=== PATIENT | female | born 1950 | race Caucasian/White ===

== ENCOUNTER 2020-04-23 10:36 | Emergency (ER) | payer OTHER, MEDICARE, SELFPAY ==
--- NOTE | ~2020-04-23 | XR_ITS ---
EXAMINATION: XR lumbar spine 2-3V, XR sacrum coccyx min 2V EXAM DATE: 04/23/2020 11:21 INDICATION: Initial encounter following injury, with pain of the low back, sacrum. TECHNIQUE: Lumber spine frontal, lateral, lateral L5-S1 projections for interpretation. Sacral front al, inlet, lateral projections. Comparison is made to prior examination from 01/21/2010. FINDINGS: Again there is moderate to severe loss of the L5-S1 disc height. There is been interval dev elopment of 3 mm anterolisthesis L4 on L5, moderate loss of disc height at this level. Otherwise mild lumbar disc disease. There is mild to moderate lumbar facet arthropathy. There is mild to moderate a nterior wedging of T11 without findings to suggest this is acute. This level was not imaged on the pr ior study. Otherwise the vertebral body heights are maintained. There are no acute fractures identifi ed. Sacrum, sacroiliac joints, sacral arcuate lines are intact. Mild dextroscoliosis. Paraspinal soft tissue is unremarkable. Left hip gamma nail with some distraction of the superior aspect greater trochanter; please correlate with the left hip report same date. IMPRESSION: 1. T11 mild to moderate anterior wedging more likely chronic than acute. 2. Mild progression in lumbar spondylosis. Reviewed, dictated and finalized at location [facility]. IMPRESSION: 1. T11 mild to moderate anterior wedging more likely chronic than acute. 2. Mild progression in lumbar spondylosis.
--- NOTE | ~2020-04-23 | CT_ITS ---
EXAMINATION: CT hip LT wo con DATE: 04/23/2020 12:03 INDICATION: Left hip pain. TECHNIQUE: Computed tomography (CT) of the left hip was performed without intravenous contrast. Autom ated exposure control and iterative reconstruction technique were employed. The dose-length product w as 152.29 mGy-cm. COMPARISON: Left hip radiographs 04/23/2020, 01/22/2020 FINDINGS: There is old healed fracture of proximal left femur. Internal fixation seen with antegrade intramedullary gerry, femoral head/neck screw, distal interlocking screw. There are lucencies around th e intramedullary gerry and lateral aspect of the femoral head/neck screw. There is a comminuted fractur e of greater trochanter. Many of the fracture fragments are well-corticated. There is mild left hip o steoarthritis. IMPRESSION: 1. Comminuted fracture of greater trochanter of proximal left femur, likely not acute. 2. Instrumentation of proximal left femur with lucencies around the instrumentation suspicious for lo osening or infection. Correlate with postoperative radiographs. Reviewed, dictated and finalized at location [facility]. IMPRESSION: 1. Comminuted fracture of greater trochanter of proximal left femur, likely not acute. 2. Instrumentation of proximal left femur with lucencies around the instrumenta tion suspicious for loosening or infection. Correlate with postoperative radiog raphs.
--- NOTE | ~2020-04-23 | XR_ITS ---
EXAMINATION: XR hip LT 2V w AP pelvis DATE: 04/23/2020 11:21 INDICATION: Left hip pain post fall TECHNIQUE: Anteroposterior view of the pelvis and anteroposterior and frog-leg lateral views of the l eft hip were obtained. COMPARISON: 01/21/2010 FINDINGS: Internal fixation at the proximal left femur with antegrade intramedullary gerry, distal interlocking s crew and femoral neck dynamic compression screw fixation. Recent-appearing avulsion fracture of the c ephalad aspect of the left greater trochanter with approximately 1 cm proximal distraction. Bilateral hip joint spaces appear relatively preserved. Severe lower lumbar spondylosis. Mild bilateral sacroi liac osteoarthritis. IMPRESSION: 1. Recent appearing avulsion fracture at the cephalad aspect of the left greater trochanter with appr oximately 1 cm proximal distraction. Reviewed, dictated and finalized at location [facility]. IMPRESSION: 1. Recent appearing avulsion fracture at the cephalad aspect of the left greate r trochanter with approximately 1 cm proximal distraction.
[2020-04-23 10:50] VITALS: BP 124/58; PULSE 117; RESP 18; TEMP 36.3; O2SAT 97
--- NOTE | 2020-04-23 13:33 | ED.GENADULT ---
HPI - General Adult General Chief complaint: Extremity Injury, Lower Stated complaint: fall, leg pain Time Seen by Provider: 04/23/20 10:46 Source: patient and family Mode of arrival: ambulatory Limitations: no limitations History of Present Illness HPI narrative: Patient presents with chief complaint of pain to her tailbone and her left hip that began after her fall today. Patient states that she has multiple sclerosis and falls often when she has flares. Patient states she has been in a flare for the past 3 days. Patient reports that she had a left hip replaced 02/2017 at [place] but would not like to disclose her surgeon as she does not want to be seen by him again. Patient states that she had difficulty getting which is typical when she is weak during her flares. She states she got her daughter came and helped her and she has just been able to walk on the extremity although there is any discomfort. Patient denies hitting her head or any loss of consciousness. She denies change in vision or hearing, syncope, chest pain, shortness of breath, abdominal pain, nausea, vomiting or any other symptoms. Related Data Allergies Allergy/AdvReac Type Severity Reaction Status Date / Time acetaminophen [From Vicodin] AdvReac Hives Verified 04/23/20 14:47 hydrocodone [From Vicodin] AdvReac Hives Verified 04/23/20 14:47 oxycodone [From OxyContin] AdvReac Hives Verified 04/23/20 14:45 Review of Systems Review of Systems: Narrative: CONSTITUTIONAL: Denies fever, chills, or sweats. EYES: Denies visual changes, redness, or discharge. ENT: Denies rhinorrhea, congestion, sore throat, or otalgia. CARDIOVASCULAR: Denies chest pain, palpitations, or edema. RESPIRATORY: Denies cough or dyspnea. GASTROINTESTINAL: Denies abdominal pain, nausea, vomiting, or diarrhea. GENITOURINARY: Denies dysuria or hematuria. SKIN: Denies rash or itching. MUSCULOSKELETAL: Reports pain to her tailbone and left hip denies back pain or myalgia. NEUROLOGIC: Denies headache, numbness, dizziness, or weakness. PSYCHIATRIC: Denies anxiety or depression. Exam Narrative: Exam Narrative: GENERAL: Well-appearing, well-nourished, and in no acute distress. HEAD: Normocephalic, atraumatic. EYES: PERRLA and EOMI. ENT: Nares clear, no rhinorrhea or epistaxis. Mucous membranes moist. Oropharynx without tonsillar hypertrophy exudate or other lesions. Bilateral TMs pearly maldonado nonbulging. No hemotympanum. NECK: Supple. No adenopathy or masses. No tenderness with palpation. CHEST: Clear to auscultation. No respiratory distress. No wheezes rales or rhonchi HEART: Regular rate and rhythm. No murmur heard. Normal peripheral pulses. BACK: Tender to palpation over the sacrum with very superficial abrasion. No other areas of tenderness or pain. ABDOMEN: Soft, nontender, nondistended, normal active bowel sounds. No bruises noted. EXTREMITIES: Patient is able to flex and lift left leg. There is no signs of pelvis pain or instability. There is tenderness to palpation over the left greater trochanter. There is no erythema or ecchymosis over the joint area increased warmth or signs of infection. Normal range of motion. No edema. SKIN: Very superficial abrasion over tailbone. Nonbleeding. Warm, dry, no rash. NEURO: No focal deficits. Alert and oriented x3. PSYCH: Normal mood and affect. Course Vital Signs Vital signs: Vital Signs Temperature 97.3 F L 04/23/20 10:50 Pulse Rate 117 H 04/23/20 10:50 Respiratory Rate 18 04/23/20 10:50 Blood Pressure 124/58 L 04/23/20 10:50 Pulse Oximetry 97 04/23/20 10:50 Temperature 97.3 F L 04/23/20 10:50 Pulse Rate 96 04/23/20 13:47 Respiratory Rate 18 04/23/20 13:47 Blood Pressure 141/85 H 04/23/20 13:47 Pulse Oximetry 99 04/23/20 13:47 Medical Decision Making MDM Narrative Medical decision making narrative: Patient has been offered pain medication emergency department. She has declined. She is only agreeable to Tyl
[2020-04-23 13:47] VITALS: BP 141/85; PULSE 96; RESP 18; O2SAT 99
[2020-04-23] MEDS: ACETAMINOPHEN 500 MG TABLET 1000 MG PO (15:00)
== END 2020-04-23 15:04 | disposition home or self-care (01) ==
PROVIDERS: Emergency Provider Emergency Medicine; PCP Family Medicine
DX: S73.102A Unspecified sprain of left hip, initial encounter (principal); S30.810A Abrasion of lower back and pelvis, initial encounter; G35 Multiple sclerosis; Z96.642 Presence of left artificial hip joint; M47.816 Spondylosis without myelopathy or radiculopathy, lumbar region; R93.7 Abnormal findings on diagnostic imaging of other parts of musculoskeletal system; W19.XXXA Unspecified fall, initial encounter
CPT/HCPCS: 72100; 72220; 73502; 73700; 99284; A9270

== ENCOUNTER 2021-07-13 11:26 | Emergency (ER) | payer MEDICARE, OTHER, SELFPAY ==
--- NOTE | ~2021-07-13 | XR_ITS ---
EXAMINATION: XR hip LT min 3V w AP pelvis DATE: 07/13/2021 13:56 INDICATION: Unable to bear weight on the left. TECHNIQUE: An anteroposterior view of pelvis and 3 views of left hip were obtained. COMPARISON: Pelvis and left hip radiographs 04/23/2020, CT 04/23/2020 FINDINGS: Bone alignment is normal. There is internal fixation of proximal left femur with antegrade intramedullary gerry, distal interlocking screw, and femoral head/neck screw. There is lucency around t he intramedullary gerry. There is an old fracture deformity of greater trochanter of proximal left femu r. There is mild osteoarthritis of the hips. There is severe lumbar spondylosis. IMPRESSION: 1. Instrumentation of proximal left femur with chronic lucencies around the intramedullary gerry, consi stent with loosening versus infection. 2. Mild osteoarthritis of the hips. Reviewed, dictated and finalized at location A. IMPRESSION: 1. Instrumentation of proximal left femur with chronic lucencies around the int ramedullary gerry, consistent with loosening versus infection. 2. Mild osteoarthritis of the hips.
[2021-07-13 11:56] VITALS: BP 175/71; PULSE 76; RESP 18; TEMP 36.1; O2SAT 100
--- NOTE | 2021-07-13 15:00 | ED.GENADULT ---
HPI - General Adult General Chief complaint: Extremity Injury, Lower Stated complaint: L hip pain Time Seen by Provider: 07/13/21 13:27 History of Present Illness HPI narrative: 70-year-old female presented to the emergency department for evaluation of worsening left hip pain. Patient states she has had intermittent hip pain but feels it has been worsening over the last few days. Patient denies any specific falls or injuries. Patient did have the hip initially replaced back in 2017. Related Data Home Medications Medication Instructions Recorded Confirmed atorvastatin 10 mg tablet tablet 07/13/21 07/13/21 baclofen 20 mg tablet tablet 07/13/21 cyclobenzaprine 10 mg tablet tablet 07/13/21 escitalopram oxalate 10 mg tablet tablet 07/13/21 gabapentin 300 mg capsule cap 07/13/21 levothyroxine 150 mcg tablet tablet 07/13/21 (Synthroid) lisinopril 20 mg tablet tablet 07/13/21 metoprolol tartrate 25 mg tablet tablet 07/13/21 teriflunomide 14 mg tablet tablet 07/13/21 (Aubagio) Allergies Allergy/AdvReac Type Severity Reaction Status Date / Time hydrocodone [From Vicodin] AdvReac Hives Verified 04/23/20 14:47 oxycodone [From OxyContin] AdvReac Hives Verified 04/23/20 14:45 Review of Systems Review of Systems: CONSTITUTIONAL: Denies fever, chills, or sweats. EYES: Denies visual changes, redness, or discharge. ENT: Denies rhinorrhea, congestion, sore throat, or otalgia. CARDIOVASCULAR: Denies chest pain, palpitations, or edema. RESPIRATORY: Denies cough or dyspnea. GASTROINTESTINAL: Denies abdominal pain, nausea, vomiting, or diarrhea. GENITOURINARY: Denies dysuria or hematuria. SKIN: Denies rash or itching. MUSCULOSKELETAL: See HPI NEUROLOGIC: Denies headache, numbness, or weakness. Exam Narrative: APPEARANCE: Well appearing, no pain, no distress, well-nourished. HEAD: normocephalic, atraumatic. EYES: PERRLA/EOMI, conjunctivae clear. NOSE: Normal no drainage NECK: Supple. No adenopathy, no masses. RESPIRATORY: Airway patent, respirations nonlabored. Clear to auscultation bilaterally, no rales, rhonchi, wheezing. CARDIOVASCULAR: Regular rate and rhythm without murmurs rubs or gallops. ABDOMINAL: Soft, nontender, nondistended, normal bowel sounds MUSCULOSKELETAL: Moves all extremities. No pain with range of motion of the hip but does have pain with weightbearing. NEURO: Alert. Cranial nerves II through XII intact. Grossly intact SKIN: Warm, dry. Normal Color Course Course Emergency Course: X-ray shows chronic changes consistent with loosening of the left hip. Patient was encouraged to have close follow-up with orthopedics. Patient was advised to have limited weightbearing on the left hip. All question concerns were addressed. Patient and daughter were comfortable with the plan for discharge and close follow-up. Patient prefers to have follow-up with [facility]. This number was provided for her for outpatient follow-up. Vital Signs Vital signs: Vital Signs Temperature 97 F L 07/13/21 11:56 Pulse Rate 76 07/13/21 11:56 Respiratory Rate 18 07/13/21 11:56 Blood Pressure 175/71 H 07/13/21 11:56 Pulse Oximetry 100 07/13/21 11:56 Temperature 97 F L 07/13/21 11:56 Pulse Rate 76 07/13/21 11:56 Respiratory Rate 18 07/13/21 11:56 Blood Pressure 175/71 H 07/13/21 11:56 Pulse Oximetry 100 07/13/21 11:56 Medical Decision Making Vital Signs Vital Signs: Vital Signs Temperature 97 F L 07/13/21 11:56 Pulse Rate 76 07/13/21 11:56 Respiratory Rate 18 07/13/21 11:56 Blood Pressure 175/71 H 07/13/21 11:56 Pulse Oximetry 100 07/13/21 11:56 Temperature 97 F L 07/13/21 11:56 Pulse Rate 76 07/13/21 11:56 Respiratory Rate 18 07/13/21 11:56 Blood Pressure 175/71 H 07/13/21 11:56 Pulse Oximetry 100 07/13/21 11:56 Discharge Plan Discharge Clinical Impression: Hip pain, left Patient Disposition: Home, Self-Care Condition: St
== END 2021-07-13 15:35 | disposition home or self-care (01) ==
PROVIDERS: Emergency Provider Emergency Medicine; PCP Family Medicine
DX: M25.552 Pain in left hip (principal); M16.0 Bilateral primary osteoarthritis of hip
CPT/HCPCS: 73502; 99283

== ENCOUNTER 2021-12-23 16:14 | Emergency (ER) | payer MEDICARE, SELFPAY ==
--- NOTE | ~2021-12-23 | CT_ITS ---
EXAMINATION: CT facial bones wo con DATE: 12/23/2021 17:42 INDICATION: Fall. Head and facial injury TECHNIQUE: Computed tomography (CT) of the facial bones and maxillofacial region was performed withou t intravenous contrast. Automated exposure control and iterative reconstruction technique were employ ed. Exam dose: 295.52 mGy-cm total exam DLP. COMPARISON: None. FINDINGS: Minimally displaced left nasal plate fracture of uncertain age. There is is very possibly r ecent as there is some asymmetric overlying left nasal soft tissue swelling. Frontozygomatic sutures, orbital rims and weiner, maxillary bones, zygomatic arches are intact. No flu id levels of the paranasal sinuses or orbital emphysema. Normal alignment at the temporomandibular joints. Degenerative change at the temporal mandibular join ts. No mandible fracture. IMPRESSION: Minimally displaced left nasal plate fracture Reviewed, dictated and finalized at [facility]. Reviewed, dictated and finalized at location A. RAL HOME ASSOCIATE
--- NOTE | ~2021-12-23 | CT_ITS ---
EXAMINATION: CT brain wo con DATE: 12/23/2021 17:38 INDICATION: Fall. TECHNIQUE: Computed tomography (CT) of the head was performed without intravenous contrast. The mA wa s adjusted according to patient size. Iterative reconstruction technique was employed. Exam dose: 60 5.33 mGy-cm total exam DLP. COMPARISON: None FINDINGS: Prominent vertebral artery and particularly prominent bilateral carotid siphon internal car otid artery calcifications are noted. There is nonspecific diminished attenuation cerebral white elayne er, likely due to chronic small vessel ischemic changes. Bilateral basal ganglia chronic lacunar infa rcts, prominent on the left. No intracranial mass lesion or hemorrhage, midline shift or mass effect effect. There is moderately p rominent central and cortical cerebral and cerebellar atrophy. No subdural or epidural hematoma. No fracture or bone destruction of the cranial vault is detected. Mastoid air cells and paranasal sin uses are unremarkable. IMPRESSION: Cerebral atherosclerosis and chronic small vessel ischemic changes of the cerebral white matter. Bilateral chronic lacunar infarcts No skull fracture or acute intracranial finding Reviewed, dictated and finalized at [facility]. Reviewed, dictated and finalized at location [facility]. GE WORKER
[2021-12-23 16:16] VITALS: BP 200/71; PULSE 67; RESP 18; TEMP 36.3; O2SAT 100
[2021-12-23 19:50] VITALS: BP 192/72; PULSE 63; RESP 18; O2SAT 98
--- NOTE | 2021-12-23 20:08 | ED.FALL ---
HPI - Fall General Chief Complaint: Fall Stated Complaint: fall Time Seen by Provider: 12/23/21 20:03 History of Present Illness HPI Narrative: Pt was walking upstairs to go to BR and tripped and fell and struck face on bathtub. Pt denies LOC. Pt has some pain to her nose but no nosebleed. Pt denies numbness or weakness. Pt has MS but nothing new with that. Pt denies WALLS. Related Data Home Medications Medication Instructions Recorded Confirmed atorvastatin 10 mg tablet tablet 07/13/21 07/13/21 baclofen 20 mg tablet tablet 07/13/21 cyclobenzaprine 10 mg tablet tablet 07/13/21 escitalopram oxalate 10 mg tablet tablet 07/13/21 gabapentin 300 mg capsule cap 07/13/21 levothyroxine 150 mcg tablet tablet 07/13/21 (Synthroid) lisinopril 20 mg tablet tablet 07/13/21 metoprolol tartrate 25 mg tablet tablet 07/13/21 teriflunomide 14 mg tablet tablet 07/13/21 (Aubagio) Allergies Allergy/AdvReac Type Severity Reaction Status Date / Time hydrocodone [From Vicodin] AdvReac Hives Verified 04/23/20 14:47 oxycodone [From OxyContin] AdvReac Hives Verified 04/23/20 14:45 Review of Systems Review of Systems: All systems reviewed & are unremarkable except as noted in HPI and below Exam Const: General: healthy appearing Nutritional Appearance: well nourished Orientation/consciousness: patient oriented x3 Limitations: no limitations HENMT: Head: normal to inspection Face/Nose/Sinus: Normal external nose present (abrasionand swelling to bridge of nose no septal hematoma) Mouth: Yes Normal oral and palatal mucosa present Eyes: Conjunctivae: conjunctivae normal Pupils: Equal, round and reactive pupils present EOM: EOMs intact bilaterally Direct Ophthalmoscopy: no photophobia Neck: Neck: normal visual inspection Chest: Chest palpation & inspection: normal inspection of the chest Resp: Effort & Inspection: normal respiratory effort Auscultation: clear to auscultation bilaterally Cardio: Rate: regular rate Rhythm: regular rhythm GI: Auscultation: normal bowel sounds Skin: General skin exam: normal color Rashes: no rashes Neuro: General: patient oriented x3, moves all extremities, no meningeal signs, no focal motor deficits and CN's II-XI intact bilaterally Cranial nerves: Yes Nystagmus not present Speech: normal speech Extrem: General: normal to inspection and no clubbing, cyanosis or edema Psych: Mental Status: mental status grossly normal Affect: normal affect Attitude: cooperative Course Vital Signs Vital signs: Vital Signs Temperature 97.3 F L 12/23/21 16:16 Pulse Rate 67 12/23/21 16:16 Respiratory Rate 18 12/23/21 16:16 Blood Pressure 200/71 H 12/23/21 16:16 Pulse Oximetry 100 12/23/21 16:16 Oxygen Delivery Room Air 12/23/21 16:16 Temperature 97.3 F L 12/23/21 16:16 Pulse Rate 63 12/23/21 19:50 Respiratory Rate 18 12/23/21 19:50 Blood Pressure 192/72 H 12/23/21 19:50 Pulse Oximetry 98 12/23/21 19:50 Oxygen Delivery Room Air 12/23/21 16:16 Discharge Plan Discharge Clinical Impression: Nasal bone fracture Patient Disposition: Home, Self-Care Condition: Stable Instructions: Antibiotic Form, Nasal Fracture (ED), Head Injury (ED) Prescriptions: No Action cyclobenzaprine 10 mg tablet atorvastatin 10 mg tablet lisinopril 20 mg tablet baclofen 20 mg tablet levothyroxine [Synthroid] 150 mcg tablet gabapentin 300 mg capsule escitalopram oxalate 10 mg tablet metoprolol tartrate 25 mg tablet Aubagio 14 mg tablet tramadol 50 mg tablet 50 mg PO Q6H PRN (Reason: pain) Qty: 14 0RF Follow-up/Referrals: Lindsey,Obed Oakes DO [Primary Care Provider] -
[2021-12-23 21:05] VITALS: BP 188/72; PULSE 76; RESP 18; O2SAT 99
== END 2021-12-23 21:06 | disposition home or self-care (01) ==
PROVIDERS: Emergency Provider Emergency Medicine; PCP Family Medicine
DX: S02.2XXA Fracture of nasal bones, initial encounter for closed fracture (principal); W01.198A Fall on same level from slipping, tripping and stumbling with subsequent striking against other object, initial encounter
CPT/HCPCS: 70450; 70486; 99284

== ENCOUNTER → 2022-08-23 15:30 | Outpatient (CLI) | payer MEDICARE, SELFPAY ==
--- NOTE | ~2022-08-23 | MR_ITS ---
MRI of the lumbar spine Clinical History: Spondylosis Technique: Axial T2-weighted images, and sagittal T1-weighted, T2-weighted, and T2 fat-sat images wer e acquired. Findings: No fracture identified in the lumbar spine. Mild chronic compression deformity of T11 noted . There is 6 mm anterolisthesis of L4 over L5. There are reactive marrow signal changes about the L4- L5 disc space due to underlying degenerative disc disease. At L1-L2, there is no disc bulge or herniation. There is mild facet arthropathy. No central canal susi nosis. There is probable mild left neural foraminal narrowing. At L2-L3, there is mild degenerative disc narrowing. No disc bulge or herniation. There is mild facet arthropathy. No central canal stenosis. There is mild left neural foraminal narrowing. At L3-L4, there is minimal disc bulge with mild to moderate facet arthropathy. No central canal steno sis or definite neural foraminal narrowing. At L4-L5, there is advanced degenerative disc narrowing. Disc bulge/uncovering and severe facet arthr opathy contribute to severe spinal canal stenosis/thecal sac compression at this level. There is jaleesa re left neural foraminal narrowing and moderate right neural foraminal narrowing. At L5-S1, there is advanced degenerative disc narrowing with diffuse disc bulge and mild to moderate facet arthropathy. No nena central canal stenosis. There is severe right neural foraminal narrowing and mild to moderate left neural foraminal narrowing. Paravertebral soft tissues are unremarkable. Impression: 6 mm anterolisthesis of L4 over L5. Mild chronic compression deformity of T11. Severe degenerative spondylosis at L4-L5, as detailed above. Moderate degenerative spondylosis at L5-S1, as detailed above. Reviewed, dictated and finalized at [facility]. Impression: 6 mm anterolisthesis of L4 over L5. Mild chronic compression deformity of T11. Severe degenerative spondylosis at L4-L5, as detailed above. Moderate degenerative spondylosis at L5-S1, as detailed above.
== END ==
PROVIDERS: PCP Anesthesiology Pain Medicine; Visit Provider Anesthesiology Pain Medicine
DX: M47.816 Spondylosis without myelopathy or radiculopathy, lumbar region (principal)
CPT/HCPCS: 72148

== ENCOUNTER 2023-03-18 12:16 | Outpatient (CLI) | payer MEDICARE, SELFPAY ==
--- NOTE | ~2023-03-18 | XR_ITS ---
EXAMINATION: XR lumbar spine min 4V DATE: 03/18/2023 13:03 INDICATION: Low back pain TECHNIQUE: Anteroposterior and lateral in neutral, flexion and extension views of the lumbar spine, a nd cone-down lateral view of the lumbosacral junction were obtained. COMPARISON: 04/23/2020 there are FINDINGS: There are 5 mm of anterolisthesis of L4 on L5 which are new since the comparison examinatio n. There is no hypermobility with flexion or extension. There is severe loss of intervertebral disc s pace height at L4-5 and L5-S1. The vertebral body heights are maintained. There is no fracture. There is severe facet joint osteoarthritis at L4-5 and L5-S1. Calcified atherosclerosis is noted. There is antegrade intramedullary gerry and interlocking intratrochanteric screw fixation of the left femur. IMPRESSION: 1. Severe lower lumbar spondylosis with interval worsening at L4-5. Reviewed, dictated and finalized at location [facility]. RTMENT DIRECTOR
== END 2023-03-18 12:17 ==
LOC: MICIMG 12:18
PROVIDERS: PCP Neurological Surgery; Visit Provider Neurological Surgery
DX: M47.896 Other spondylosis, lumbar region (principal)
CPT/HCPCS: 72110